=== PATIENT | male | born 1990 | race Caucasian/White ===

== ENCOUNTER 2017-07-10 14:11 | Emergency (ER) | payer MEDICAID ==
[~2017-07-10] VITALS: Ht 185.4 cm; Wt 136.1 kg
[2017-07-10] MEDS ORDERED: DUONEB 2.5-0.5 M3 ML INH (15:44)
[2017-07-10] MEDS ORDERED: VENTOLIN HFA 1818 GM INH (15:44)
[2017-07-10] MEDS ORDERED: medrol PO (15:44)
[2017-07-10] MEDS ORDERED: COZAAR 25 MG TA25 M1 PO (15:44)
[2017-07-10 15:53] VITALS: BP 145/74
[2017-09-01] MEDS ORDERED: VENTOLIN HFA 1818 GM INH
[2017-09-01] MEDS ORDERED: PREDNISONE50 MG PO
== END 2017-07-10 15:55 | disposition home or self-care (01) ==
LOC: M.ERS 14:11
DX: J45.901 Unspecified asthma with (acute) exacerbation (principal); I10 Essential (primary) hypertension; K21.9 Gastro-esophageal reflux disease without esophagitis; Z88.8 Allergy status to other drugs, medicaments and biological substances

== ENCOUNTER 2017-08-06 21:14 | Emergency (ER) | payer MEDICAID ==
[~2017-08-06] VITALS: Ht 185.4 cm; Wt 161.4 kg
[~2017-08-06 21:14] MED LIST: COZAAR 25 MG TA25 M1 PO; DUONEB 2.5-0.5 M3 ML INH; VENTOLIN HFA 1818 GM INH; medrol PO
[2017-08-06] MEDS ORDERED: PROAIR HFA8.5 GM INH (22:43)
[2017-08-06] MEDS ORDERED: DOXYCYCLINE MO100 M1 PO (22:43)
[2017-08-06] MEDS ORDERED: MEDROL8 MG PO (22:43)
[2017-08-06 23:02] VITALS: BP 177/90
[2017-09-01] MEDS ORDERED: VENTOLIN HFA 1818 GM INH
[2017-09-01] MEDS ORDERED: PREDNISONE50 MG PO
== END 2017-08-06 23:03 | disposition home or self-care (01) ==
LOC: M.ERS 21:14
DX: L02.414 Cutaneous abscess of left upper limb (principal); Z76.0 Encounter for issue of repeat prescription; J45.909 Unspecified asthma, uncomplicated; I10 Essential (primary) hypertension; K21.9 Gastro-esophageal reflux disease without esophagitis; Z88.8 Allergy status to other drugs, medicaments and biological substances

== ENCOUNTER 2017-09-01 23:17 | Emergency (ER) | payer MEDICAID ==
[~2017-09-01] VITALS: Ht 188 cm; Wt 158.8 kg
[~2017-09-01 23:17] MED LIST changes: +DOXYCYCLINE MO100 M1 PO; +MEDROL8 MG PO; +PREDNISONE50 MG PO; +PROAIR HFA8.5 GM INH
[2017-09-02] MEDS ORDERED: VENTOLIN HFA 1818 GM INH (00:06)
[2017-09-02] MEDS ORDERED: MEDROLDOSEPACK PO (00:06)
[2017-09-02 00:09] VITALS: BP 160/97
== END 2017-09-02 00:10 | disposition home or self-care (01) ==
LOC: M.ERS 23:17
DX: J45.901 Unspecified asthma with (acute) exacerbation (principal); Z76.0 Encounter for issue of repeat prescription; I10 Essential (primary) hypertension; K21.9 Gastro-esophageal reflux disease without esophagitis; Z88.8 Allergy status to other drugs, medicaments and biological substances

== ENCOUNTER 2018-09-04 21:29 | Emergency (ER) | payer MEDICAID ==
[~2018-09-04] VITALS: Ht 188 cm; Wt 145.4 kg
[~2018-09-04 21:29] MED LIST changes: +MEDROLDOSEPACK PO
[2018-09-04] MEDS ORDERED: MEDROL16 MG (21:43)
[2018-09-04 22:07] LABS: HEMATOCRIT 41.6 % (42.0-52.0); HEMOGLOBIN 13.8 gm/dL (14.0-18.0); MCH 29.5 pg (26.0-34.0); MCHC 33.1 g/dL (28.0-37.0); MCV 89.3 fL (80.0-100.0); MPV 8.2 fl. (7.2-11.1); NUCLEATED RBCS 0 /100WBC; PLATELET COUNT* 265 thou/uL (150-400); RBC 4.66 mil/uL (4.50-6.00); WBC 11.1 thou/uL (4.0-11.0)
[2018-09-04 22:30] LABS: ALBUMIN 3.6 g/dL (3.4-5.0); ALKALINE PHOSPHATASE 59 U/L (46-116); ANION GAP 17 mmol/L (7-16); BUN 21 mg/dL (7-18); CALCIUM 8.8 mg/dL (8.5-10.1); CHLORIDE 98 mmol/L (98-107); CO2 19 mmol/L (21-32); CREATININE 1.4 mg/dL (0.6-1.3); POTASSIUM 5.1 mmol/L (3.5-5.1); SGOT 57 U/L (15-37); SGPT 100 U/L (30-65); SODIUM 134 mmol/L (136-145); TOTAL BILIRUBIN 0.6 mg/dL (<0.1-1.0); TOTAL PROTEIN 7.1 g/dL (6.4-8.2); TROPONIN-I LEVEL <0.06 ng/mL (<0.06)
[2018-09-04 22:34] LABS: ABSOLUTE LYMPHOCYTES 0.1 thou/uL (0.8-5.3); PLATELET ESTIMATE ADEQUATE
[2018-09-04 22:56] LABS: URINE BILIRUBIN NEGATIVE (Negative); URINE BLOOD NEGATIVE (Negative); URINE CLARITY CLEAR; URINE COLOR YELLOW; URINE GLUCOSE-RANDOM 3+ (Negative); URINE KETONES 1+ (Negative); URINE LEUKOCYTES-REFLEX NEGATIVE (Negative); URINE NITRITE-REFLEX NEGATIVE (Negative); URINE PROTEIN NEGATIVE (Negative); URINE SPECIFIC GRAVITY <= 1.005 (1.005-1.030); URINE UROBILINOGEN 0.2 E.U./dl (0.2-1.0)
[2018-09-04] MEDS ORDERED: PROAIR HFA8.5 GM INH (23:30)
[2018-09-04 23:51] VITALS: BP 150/97
--- NOTE | 2018-09-05 15:55 | EKG ---
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
[2018-09-06 16:12] LABS: GLUCOSE 712 mg/dL (70-99)
== END 2018-09-04 23:51 | disposition home or self-care (01) ==
LOC: M.ERS 21:29
PROVIDERS: Physician Assistant
DX: R73.9 Hyperglycemia, unspecified (principal); R94.6 Abnormal results of thyroid function studies; J45.909 Unspecified asthma, uncomplicated; I10 Essential (primary) hypertension; K21.9 Gastro-esophageal reflux disease without esophagitis; Z88.8 Allergy status to other drugs, medicaments and biological substances

== ENCOUNTER 2019-10-25 21:49 | Observation (INO) | payer MEDICARE, MEDICAID ==
[~2019-10-25] VITALS: Ht 188 cm; Wt 160.6 kg
[~2019-10-25 21:49] MED LIST changes: +MEDROL16 MG PO
[2019-10-25 21:58] VITALS: BP 183/112
[2019-10-25] MEDS ORDERED: METFORMIN HCL500 M3 PO (22:05)
[2019-10-25] MEDS ORDERED: PROTONIX40 M2 PO (22:06)
[2019-10-26 02:45] LABS: HEMATOCRIT 45.4 % (42.0-52.0); HEMOGLOBIN 15.1 gm/dL (14.0-18.0); MCH 28.9 pg (26.0-34.0); MCHC 33.3 g/dL (28.0-37.0); MCV 86.8 fL (80.0-100.0); NUCLEATED RBCS 0 /100WBC; PLATELET COUNT* 340 thou/uL (150-400); RBC 5.23 mil/uL (4.50-6.00); RDW-CV 12.6 % (10.5-14.5); WBC 12.2 thou/uL (4.0-11.0)
[2019-10-26 02:55] LABS: CALCIUM 9.5 mg/dL (8.5-10.1); CREATININE 1.3 mg/dL (0.6-1.3); MAGNESIUM 1.8 mg/dL (1.8-2.4); POTASSIUM 3.7 mmol/L (3.5-5.1)
[2019-10-26 02:59] VITALS: BP 172/82
[2019-10-26 04:17] LABS: ABSOLUTE LYMPHOCYTES 1.1 thou/uL (0.8-5.3); ABSOLUTE MONOCYTES 0.1 thou/uL (0.0-1.2); PLATELET ESTIMATE ADEQUATE
[2019-10-26 07:30] VITALS: BP 155/71
--- NOTE | 2019-10-26 07:33 | NUR ---
PT RECIEVED FROM ED IN ROOM 211. ALERT AND ORIENTED X4. DENIES PAIN AND SOB. CALL LIGHT WITHIN REACH AND BED IN LOW POSITION. HOURLY ROUNDING DONE FOR PT SAFETY.
[2019-10-26] MEDS ORDERED: MEDROL16 MG PO (07:47)
[2019-10-26 11:44] VITALS: BP 157/98
[2019-10-26 14:22] VITALS: BP 157/98
== END 2019-10-26 16:02 | disposition home or self-care (01) ==
LOC: M.ERS 21:49 → M.2W 10-26 01:34 → M.TBA-ER 10-26 01:34 → M.2W 10-26 03:15
PROVIDERS: Emergency Medicine; ADMIT Internal Medicine; ATTEND Internal Medicine
DX: J45.901 Unspecified asthma with (acute) exacerbation (principal); I10 Essential (primary) hypertension; K21.9 Gastro-esophageal reflux disease without esophagitis; R73.9 Hyperglycemia, unspecified; E66.01 Morbid (severe) obesity due to excess calories; E27.40 Unspecified adrenocortical insufficiency

== ENCOUNTER 2020-01-14 20:31 | Emergency (ER) | payer MEDICARE, MEDICAID ==
[~2020-01-14] VITALS: Ht 188 cm; Wt 158.8 kg
[~2020-01-14 20:31] MED LIST changes: +METFORMIN HCL500 M3 PO; +PROTONIX40 M2 PO
[2020-01-14 21:45] VITALS: BP 120/100
== END 2020-01-14 21:45 | disposition home or self-care (01) ==
LOC: M.ERS 20:31
DX: J45.901 Unspecified asthma with (acute) exacerbation (principal); I10 Essential (primary) hypertension; K21.9 Gastro-esophageal reflux disease without esophagitis; J45.909 Unspecified asthma, uncomplicated; Z88.8 Allergy status to other drugs, medicaments and biological substances

== ENCOUNTER 2020-01-22 13:32 | Emergency (ER) | payer MEDICARE, MEDICAID ==
[~2020-01-22] VITALS: Ht 185.4 cm; Wt 140.6 kg
[2020-01-22 14:31] LABS: ABSOLUTE BASOPHILS 0.1 thou/uL (0.0-0.2); ABSOLUTE EOSINOPHILS 0.2 thou/uL (0.0-0.7); ABSOLUTE LYMPHOCYTES 2.4 thou/uL (0.8-5.3); ABSOLUTE MONOCYTES 0.5 thou/uL (0.0-1.2); ABSOLUTE NEUTROPHILS 7.3 thou/uL (1.6-8.1); EOSINOPHILS 2.3 %; HEMATOCRIT 45.8 % (42.0-52.0); LYMPHOCYTES 22.9 %; MCH 28.8 pg (26.0-34.0); MCHC 32.8 g/dL (28.0-37.0); MCV 87.7 fL (80.0-100.0); MONOCYTES 5.1 %; MPV 7.9 fl. (7.2-11.1); NUCLEATED RBCS 0 /100WBC; PLATELET COUNT* 307 thou/uL (150-400); POLYS 68.7 %; RBC 5.23 mil/uL (4.50-6.00); RDW-CV 12.7 % (10.5-14.5); WBC 10.6 thou/uL (4.0-11.0)
[2020-01-22 14:34] LABS: INFLUENZA A ANTIGEN Negative (Negative); INFLUENZA B ANTIGEN Negative (Negative)
[2020-01-22 14:35] LABS: CALCIUM 8.6 mg/dL (8.5-10.1); POTASSIUM 4.3 mmol/L (3.5-5.1)
[2020-01-22 14:47] LABS: ALBUMIN 3.7 g/dL (3.4-5.0); TOTAL BILIRUBIN 0.5 mg/dL (<0.1-1.0); TOTAL PROTEIN 7.3 g/dL (6.4-8.2)
[2020-01-22] MEDS ORDERED: VENTOLIN HFA 1818 GM INH (17:14)
[2020-01-22 17:27] VITALS: BP 176/105
--- NOTE | 2020-01-23 08:26 | EKG ---
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1990 Requested By: Rosario Veronica Order Number: [id number] MD: Olaf Harper Measurements Intervals [place] Rate: 107 P: [place]: QRS: 82 QRSD: 82 T: 47 QT: 321 QTc: 429 Interpretive Statements Sinus tachycardia ventricular premature complex Artifact in lead(s) I,II,aVR,aVL,aVF,V1,V2,V3,V4,V5,V6 Compared to ECG 09/04/2018 22:35:14 Ventricular premature complex(es) now present ST (T wave) deviation now present Inferior Q waves no longer present Q waves no longer present Electronically Signed On 01-23-2020 8:26:05 CDT by Olaf Harper [email or web address] <ELECTRONICALLY SIGNED> By: Olaf Harper MD, FACC 01/23/20 0826 28 142 Olaf Harper MD, FAC /EPI
== END 2020-01-22 17:28 | disposition home or self-care (01) ==
LOC: M.ERS 13:32
PROVIDERS: Nurse Practitioner Family
DX: J45.901 Unspecified asthma with (acute) exacerbation (principal); R73.9 Hyperglycemia, unspecified; Z20.828 Contact with and (suspected) exposure to other viral communicable diseases; K21.9 Gastro-esophageal reflux disease without esophagitis; I10 Essential (primary) hypertension; Z88.8 Allergy status to other drugs, medicaments and biological substances

== ENCOUNTER 2020-09-26 23:23 | Emergency (ER) | payer MEDICARE, MEDICAID ==
[~2020-09-26] VITALS: Ht 185.4 cm; Wt 147.4 kg
[2020-09-26] MEDS ORDERED: SINGULAIR 4 MG C4 MG PO (23:40)
[2020-09-27] MEDS ORDERED: ENDOCET 7.5-321 EACH PO (01:43)
[2020-09-27] MEDS ORDERED: FLEXERIL PO (01:43)
[2020-09-27 01:58] VITALS: BP 146/89
== END 2020-09-27 01:58 | disposition home or self-care (01) ==
LOC: M.ERS 23:23
DX: M54.5 Low back pain (principal); I10 Essential (primary) hypertension; J45.909 Unspecified asthma, uncomplicated; K21.9 Gastro-esophageal reflux disease without esophagitis; Z88.8 Allergy status to other drugs, medicaments and biological substances